=== PATIENT | male | born 1960 | race Two or more races ===

== ENCOUNTER 2025-04-29 17:03 | Emergency (ER) | payer MEDICAID ==
[~2025-04-29] VITALS: Ht 175.3 cm; Wt 49.4 kg
[2025-04-29 18:55] LABS: PLATELET COUNT (AUTO) 417 K/uL (150-450); RED BLOOD CELL COUNT(AUTO) 3.86 MIL/uL (4.5-6.0); RED CELL DISTRIBUTION WIDTH 13.5 % (11.5-15.0); WHITE BLOOD COUNT (AUTO) 5.4 K/uL (4.3-11.0)
[2025-04-29 19:12] LABS: APPEARANCE,URINE CLEAR (CLEAR); BLOOD, URINE NEGATIVE Ery/uL (NEGATIVE); LEUKOCYTE ESTERASE ,URINE NEGATIVE (NEGATIVE); NITRITE, URINE NEGATIVE (NEGATIVE); UGLUCOSE NEGATIVE (NEGATIVE)
[2025-04-29 19:12] LABS: CALCIUM, SERUM 8.2 mg/dL (8.5-10.1); CREATININE 0.8 mg/dL (0.6-1.3); SODIUM SERUM 144.0 mmol/L (136-145); UREA NITROGEN, BLOOD 12.0 mg/dL (7-18)
[2025-04-29 19:19] LABS: ASPARTATE AMINOTRANSFERASE 11.0 U/L (15-37); TOTAL PROTEIN, SERUM 6.5 g/dL (6.4-8.2)
[2025-04-29 19:26] LABS: ADD URINE CULTURE NO
[2025-04-29] MEDS ORDERED: CEPH500C2 PO (19:38)
[2025-04-29 20:59] VITALS: BP 112/76; TEMP 97.7; O2SAT 98
== END 2025-04-29 20:59 | disposition home or self-care (01) ==
LOC: ER 17:13
DX: R30.0 Dysuria (principal); G40.909 Epilepsy, unspecified, not intractable, without status epilepticus
CPT/HCPCS: 36415; 80048-TC; 80076-TC; 81001; 85025-TC; 87086-TC